=== PATIENT | female | born 2000 | race Caucasian/White ===

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

== ENCOUNTER 2022-08-10 18:56 | Emergency (ER) | payer SELFPAY ==
[2022-08-10 19:35] VITALS: BP 121/73; PULSE 69; RESP 18; TEMP 98.1; BMI 30.9
[2022-08-10 20:24] LABS: PH,URINE 5.5 (5.0-8.0); URINE APPEARANCE CLEAR; URINE BILIRUBIN NEGATIVE (NEGATIVE); URINE COLOR YELLOW; URINE GLUCOSE (UA) NEGATIVE (NEGATIVE); URINE KETONE NEGATIVE (NEGATIVE); URINE LEUK ESTERASE NEGATIVE (NEGATIVE); URINE NITRITE NEGATIVE (NEGATIVE); URINE PROTEIN NEGATIVE (NEGATIVE); URINE UROBILINOGEN 0.2 mg/dL (0.2-1.0)
[2022-08-10 20:27] LABS: HCG,QUALITATIVE URINE Positive
== END 2022-08-10 20:35 | disposition home or self-care (01) ==
LOC: JERFT 18:56 → JER 18:56 → JERFT 20:35
DX: O21.9 Vomiting of pregnancy, unspecified (principal); Z3A.01 Less than 8 weeks gestation of pregnancy
CPT/HCPCS: 81003; 84703; 87086; 99283-25